=== PATIENT | male | born 1980 | race Caucasian/White ===

== ENCOUNTER 2017-08-22 09:23 | Emergency (ER) | payer OTHER ==
[2017-08-22] MEDS ORDERED: ACETAMINOPHEN 500 MG TABLET (FP) PO ONE (09:36)
[2017-08-22 09:38] VITALS: BP 127/91; PULSE 115; TEMP 101.9; BMI 26.4
[2017-08-22] MEDS ORDERED: ACETAMINOPHEN 500 MG TABLET (FP) ONE (09:38)
--- NOTE | 2017-08-22 09:40 | PDOC ---
History of Present Illness - General Chief Complaint: Respiratory Stated Complaint: BODY ACHE,CHILLS,HEADACHE,FEVER Time Seen by Provider: 08/22/17 09:29 History Source: Patient (Patient walked in complaining of cough, fever, bodyaches since yesterday) - History of Present Illness Timing/Duration: 24 hours Severity: moderate Modifying Factors: improves with: rest Associated Symptoms: reports: fever/chills, loss of appetite, malaise Past History - Travel Traveled outside of the country in the last 30 days: No Close contact w/someone who was outside of country & ill: No - Past Medical History Allergies/Adverse Reactions: Allergies Allergy/AdvReac Type Severity Reaction Status Date / Time No Known Allergies Allergy Verified 08/22/17 09:27 Home Medications: Ambulatory Orders Clonazepam [KlonoPIN] 1 mg PO DAILY 11/26/14 Acetaminophen [Tylenol Extra Strength] 1,000 tab PO TID #30 tablet 08/22/17 Guaifenesin Dm [Robitussin Dm -] 10 ml PO Q4H #100 ml 08/22/17 Oseltamivir Phosphate [Tamiflu] 75 mg PO BID #10 capsule 08/22/17 GI Disorders: Yes (Elevated LFTs) Psychiatric Problems: Yes (anxiety) - Surgical History GI Surgery: Yes (Liver Biopsy) - Immunization History Immunization Up to Date: Yes - Suicide/Smoking/Psychosocial Hx Smoking Status: Yes Smoking History: Former smoker Have you smoked in the past 12 months: Yes Number of Cigarettes Smoked Daily: 1 'Breaking Loose' booklet given: 09/09/13 Hx Alcohol Use: No Drug/Substance Use Hx: No Substance Use Type: None Review of Systems - Review of Systems Able to Perform ROS?: Yes Is the patient limited Chinese proficient: Yes Constitutional: Yes: Symptoms Reported, Fever, Malaise, Night Sweats HEENTM: Yes: See HPI, Throat Pain Respiratory: Yes: Cough Cardiac (ROS): No: Symptoms Reported, See HPI, Chest Pain, Edema, Irregular Heart Rate, Lightheadedness, Palpitations, Syncope, Chest Tightness, Other ABD/GI: No: Symptoms Reported, See HPI, Abdominal Distended, Abd. Pain w/ defecation, Blood Streaked Bowels, Constipated, Diarrhea, Difficulty Swallowing , Nausea, Poor Appetite, Poor Fluid Intake, Rectal Bleeding, Vomiting, Indigestion, Abdominal cramping, Tarry Stools, Other Musculoskeletal: No: Symptoms Reported, See HPI, Back Pain, Gout, Joint Pain, Joint Swelling, Muscle Pain, Muscle Weakness, Neck Pain, Joint Stiffness, Other Integumentary: No: Symptoms Reported, See HPI, Bruising, Change in Color, Change in Hair/Nails, Dryness, Erythema, Flushing, Lesions, Lumps, Pallor, Pruritus, Rash, Sweating, Other All Other Systems: Reviewed and Negative *Physical Exam - Physical Exam General Appearance: Yes: Nourished, Appropriately Dressed, Moderate Distress HEENT: positive: Pharyngeal Erythema Neck: positive: Supple *DC/Admit/Observation/Transfer Diagnosis at time of Disposition: Influenza - Discharge Dispostion Disposition: HOME Condition at time of disposition: Stable Admit: No - Prescriptions Prescriptions: Acetaminophen [Tylenol Extra Strength] 1,000 tab PO TID #30 tablet Guaifenesin Dm [Robitussin Dm -] 10 ml PO Q4H #100 ml Oseltamivir Phosphate [Tamiflu] 75 mg PO BID #10 capsule - Referrals - Patient Instructions Printed Discharge Instructions: Influenza Additional Instructions: Fluids, rest, follow up with your doctor, Dr Casanova - Post Discharge Activity
== END 2017-08-22 09:56 | disposition home or self-care (01) ==
LOC: FER 09:23
DX: J11.1 Influenza due to unidentified influenza virus with other respiratory manifestations (principal); Z87.891 Personal history of nicotine dependence; F41.9 Anxiety disorder, unspecified; R94.5 Abnormal results of liver function studies
CPT/HCPCS: 87804; 99282-25

== ENCOUNTER 2024-05-20 13:15 | Emergency (ER) | payer OTHER ==
[2024-05-20 15:20] LABS: HEMATOCRIT 47.3 % (35.4-49); HEMOGLOBIN 14.6 G/dL (11.7-16.9); MCHC 30.9 g/dl (32.0-35.9); MEAN CELL VOLUME 77.7 fl (80-96); MEAN PLT VOLUME 10.4 fl (7.5-11.1); PLATELET COUNT 164.5 10^3/uL (134-434); RBC 6.09 10^6/uL (4.00-5.60); RDW 16.3 % (11.9-15.9); WHITE BLOOD COUNT 4.8 10^3/uL (4.0-10.8)
[2024-05-20 15:29] LABS: ALBUMIN 4.1 g/dl (3.4-5.0); BILIRUBIN,TOTAL 0.5 mg/dl (0.2-1); CALCIUM 8.9 mg/dl (8.5-10.1); CREATININE 0.7 mg/dl (0.6-1.3); TOT PROT 6.8 g/dl (6.4-8.2)
[2024-05-20] MEDS ORDERED: ACETAMINOPHEN INJECTION 100 ML ONE (16:05)
[2024-05-20] MEDS: ACETAMINOPHEN 1000 MG/100 ML BAG IVPB ONE (16:12)
[2024-05-20 16:23] VITALS: BP 124/95; PULSE 83; RESP 18; TEMP 98.4; BMI 25.1
== END 2024-05-20 18:58 | disposition home or self-care (01) ==
LOC: FER 13:15
PROC: 3E033NZ Introduction of Analgesics, Hypnotics, Sedatives into Peripheral Vein, Percutaneous Approach (ICD-10-PCS; principal; 2024-05-20)
DX: R10.30 Lower abdominal pain, unspecified (principal); R19.7 Diarrhea, unspecified; M54.50 Low back pain, unspecified; G89.29 Other chronic pain
CPT/HCPCS: 36415; 74177-TC; 80053; 85027; 96374; 99285-25; J0131; Q9967

== ENCOUNTER 2024-11-20 06:25 | Emergency (ER) | payer OTHER ==
[2024-11-20 06:41] VITALS: BP 126/92; PULSE 55; RESP 16; TEMP 97.5; BMI 25.1
[2024-11-20 07:19] LABS: ABSOLUTE IMMATURE GRANULOCYTES 0.01 x10^3/uL (0.0-0.031); BASOPHILS # 0.05 x10^3/uL (0.01-0.08); EOSINOPHIL % 4.6 % (0.8-7.0); EOSINOPHILS # 0.36 x10^3/uL (0.04-0.54); HEMATOCRIT 42.5 % (40.1-51.0); HEMOGLOBIN 13.6 g/dL (13.7-17.5); MEAN CELL VOLUME 75.2 fl (79.0-92.2); MEAN PLT VOLUME 10.6 fl (9.4-12.4); MONOCYTE # 0.52 x10^3/uL (0.30-0.82); MONOCYTE % 6.6 % (5.3-12.2); PLATELET COUNT 182 x10^3/uL (163-337)
[2024-11-20 07:42] LABS: ALBUMIN 4.2 g/dl (3.4-5.0); BILIRUBIN,TOTAL 0.5 mg/dl (0.2-1); CALCIUM 9.9 mg/dl (8.5-10.1); POTASSIUM 4.5 mmol/L (3.5-5.1); TOT PROT 6.7 g/dl (6.4-8.2)
[2024-11-20 08:07] LABS: CREATININE 0.7 mg/dl (0.6-1.3)
[2024-11-20 15:10] LABS: HCV DIAGNOSTIC IN-HOUSE W/RFLX NON-REACTIVE (NONREACTIVE)
[2024-11-20 15:11] LABS: HIV INTERPRETATION NEGATIVE (NEGATIVE)
== END 2024-11-20 12:24 | disposition home or self-care (01) ==
LOC: FER 06:25
DX: K76.0 Fatty (change of) liver, not elsewhere classified (principal); R10.32 Left lower quadrant pain; G89.29 Other chronic pain; R31.29 Other microscopic hematuria; R63.4 Abnormal weight loss
CPT/HCPCS: 36415; 71046-TC-FY; 74177-TC; 80053; 81003; 81015; 85025; 86803; 87389; 99285-25; Q9967